=== PATIENT | male | born 1955 | race Caucasian/White ===

== ENCOUNTER 2018-11-07 08:43 | Outpatient (REF) | payer MEDICARE, BC, SELFPAY ==
[2018-11-07 12:31] LABS: Anion Gap 8.7 mmol/L (3-11); BUN 17 mg/dL (7-18); CO2 28.3 mmol/L (21.0-32.0); CREATININE 1.13 mg/dL (0.70-1.30); Calcium 9.2 mg/dL (8.5-10.1); Chloride 103 mmol/L (98-107); Cholesterol 225 mg/dL (50-200); Glucose 101 mg/dL (70-100); HDL Cholesterol 76 mg/dL (40-60); LDL CHOLESTEROL 134 mg/dL (<100); Potassium 4.6 mmol/L (3.5-5.1); Sodium 140 mmol/L (136-145); Triglyceride 78 mg/dL (30-150)
== END 2018-11-07 09:03 ==
LOC: NCHCN 08:43
PROVIDERS: PCP Family Medicine; Visit Provider Family Medicine
DX: Z00.00 Encounter for general adult medical examination without abnormal findings (principal); Z13.228 Encounter for screening for other metabolic disorders; Z13.220 Encounter for screening for lipoid disorders
CPT/HCPCS: 80048; 80061; 83721

== ENCOUNTER 2018-11-19 18:53 | Outpatient (REF) | payer MEDICARE, BC, SELFPAY ==
[2018-11-19 20:00] LABS: TSH (W/Ref FT4) 3.99 uIU/mL (0.358-3.74)
[2018-11-19 20:18] LABS: FREE T4 0.88 ng/dL (0.76-1.46)
[2018-11-21 09:40] LABS: PSA, Screening 1.3 ng/ml (0-4.5)
== END 2018-11-19 19:13 ==
LOC: NCHCN 18:53
PROVIDERS: PCP Family Medicine; Visit Provider Family Medicine
DX: R63.5 Abnormal weight gain (principal); G58.9 Mononeuropathy, unspecified; Z12.5 Encounter for screening for malignant neoplasm of prostate; Z00.00 Encounter for general adult medical examination without abnormal findings
CPT/HCPCS: 84153; 84439; 84443

== ENCOUNTER → 2019-01-05 10:34 | Outpatient (BNVA) | payer MEDICARE, BC, SELFPAY | PROVIDERS: PCP Family Medicine; Referring Provider Family Medicine; Visit Provider Physical Therapy Assistant | DX: Z12.11 Encounter for screening for malignant neoplasm of colon (principal); Z86.010 Personal history of colon polyps ==

== ENCOUNTER 2019-01-30 08:09 | Day surgery (SDC) | payer MEDICARE, BC, SELFPAY ==
[2019-01-30 08:25] VITALS: BP 137/87; PULSE 55; RESP 16; TEMP 36.2; O2SAT 99
[2019-01-30] MEDS: Lactated Ringers 1,000 ML 80 ML IV (08:35)
--- NOTE | 2019-01-30 09:36 | W.PM.DSUDISC ---
Discharge Plan Disposition Patient Disposition: HOME Condition: Good Discharge Details Attending Provider: Morenita So Primary Care Provider: Zeke Cuba Home Meds and New Rx's Prescriptions: Continued simvastatin 40 mg tablet 40 mg PO QHS RF: 0 loratadine [Allergy Relief (loratadine)] 10 mg tablet 10 mg PO DAILY RF: 0 (DME) arm brace [KAMINI Elbow Brace] 1 EACH misc 1 ea Miscellaneous HS Qty: 1 RF: 0 (DME) arm brace [Wrist Support Large-XLarge] 1 EACH misc 1 ea Miscellaneous HS Qty: 1 RF: 0 Discontinued polyethylene glycol 3350 17 gram/dose powder 238 g PO ONCE Qty: 238 RF: 0 bisacodyl [Dulcolax (bisacodyl)] 5 mg tablet,delayed release (DR/EC) 5 mg PO ONCE Qty: 4 RF: 0 Discharge Instructions Additional Instructions: Your colonoscopy was normal. Plan for routine screening in one year. If you develop new symptoms such as rectal bleeding or change in bowel habits, you can consider a colonoscopy prior to 10 years. Activity:: Activity as Tolerated Diet:: As Tolerated Discharge Orders Discharge Orders: Discharge Order (Routine); Ordered 01/30/19 Ordered By: Morenita So DS: Diagnosis Discharge Diagnosis (1) Normal colonoscopy: Start date: 01/30/19 Start time: 09:37 Status: Acute
[2019-01-30 10:00] VITALS: BP 125/77; PULSE 57; RESP 16; TEMP 36.1; O2SAT 98
--- NOTE | 2019-01-30 11:17 | COLE_ITS ---
DATE OF PROCEDURE: January 30, 2019 PREOPERATIVE DIAGNOSIS: Screening. POSTOPERATIVE DIAGNOSIS: Normal colon. PROCEDURE: Colonoscopy. SURGEON: Morenita So M.D. ANESTHESIA: General. INDICATIONS: This is a 63-year-old man whose last colonoscopy was in 2004. He is asymptomatic. He reports no family history of colon cancer. He does have a remote history of having colon polyps maite kathy. PROCEDURE: He was placed in the left Fischer' position. Propofol was titrated to sedation. Digital re ctal examination revealed no abnormalities. The scope was advanced to the cecum without difficulty. The ileocecal valve and appendiceal orifice were clearly identified. His prep was excellent. The s cope was slowly withdrawn with no abnormalities seen within the ascending, transverse, descending, si gmoid colon or rectum, including on retroflex view. He tolerated the procedure well and was stable t o recovery. He will need a follow-up screening again in ten years or sooner if symptoms indicate. cc: Zeke Cuba M.D.
== END 2019-01-30 10:30 | disposition home or self-care (01) ==
PROVIDERS: PCP Family Medicine; Visit Provider Surgery
PROC: 0DJD8ZZ Inspection of Lower Intestinal Tract, Via Natural or Artificial Opening Endoscopic (ICD-10-PCS; CPT 45378; principal; 2019-01-30 09:30)
DX: Z12.11 Encounter for screening for malignant neoplasm of colon (principal); Z86.010 Personal history of colon polyps
CPT/HCPCS: G0105

== ENCOUNTER 2019-10-05 18:47 | Outpatient (REF) | payer MEDICARE, BC, SELFPAY ==
[2019-10-05 19:21] LABS: TSH (W/Ref FT4) 2.65 uIU/mL (0.36-3.74)
[2019-10-05 19:50] LABS: ESR 14 mm/hr (1-20)
== END 2019-10-05 19:07 ==
LOC: NCHCN 18:47
PROVIDERS: PCP Family Medicine; Visit Provider Family Medicine
DX: R51 Headache (principal); R94.6 Abnormal results of thyroid function studies
CPT/HCPCS: 85652; 84443

== ENCOUNTER 2020-02-16 11:34 | Outpatient (CLI) | payer MEDICARE, BC, SELFPAY ==
--- NOTE | 2020-02-16 10:12 | DI.RAD_ITS ---
EXAM: XR SHOULDER LT COMPLETE 2+V CLINICAL HISTORY: left shoulder pain. TECHNIQUE: 2D digital imaging was performed. COMPARISON: No exams were available for comparison FINDINGS: BONES: No acute fracture is present. No bony destructive lesion is seen. JOINTS: No dislocation present. There is mild spurring of the AC joint and tip of the acromion. SOFT TISSUE: Normal. IMPRESSION: Mild degenerative changes. DATA REPOSITORY: RADIATION DOSE DELIVERED:
== END 2020-02-16 11:54 ==
PROVIDERS: PCP Family Medicine; Referring Provider Physical Therapist; Visit Provider Orthopaedic Surgery
DX: M25.512 Pain in left shoulder (principal); M75.82 Other shoulder lesions, left shoulder; M19.012 Primary osteoarthritis, left shoulder; W10.9XXA Fall (on) (from) unspecified stairs and steps, initial encounter
CPT/HCPCS: 99203; 99214; 73030

== ENCOUNTER 2020-02-29 01:51 | Outpatient (CLI) | payer MEDICARE, BC, SELFPAY ==
--- NOTE | 2020-02-29 06:34 | DI.MRI_ITS ---
EXAM: MR UPPER JOINT LT WO CLINICAL HISTORY: shoulder PAIN, R/O RTC TEAR,TENDINITIS LT ROTATOR CUFF,M75.82. TECHNIQUE: Multiplanar multisequence MRI was performed. COMPARISON: CR XR SHOULDER LT COMPLETE 2+V from 02/16/2020 FINDINGS: BONES: There is no fracture or contusion pattern. JOINTS: Mild degenerative signal changes are seen at the acromioclavicular joint. The glenohumeral j oint is normal. TENDONS: Supraspinatus: Thickening and increased signal is seen in the supraspinatus tendon consistent with de generation and/or partial tear. Infraspinatus: Unremarkable. Subscapularis: Mild thickening and increased signal seen in the subscapularis tendon consistent with degeneration. [place]: Unremarkable. Biceps and [place]: There is thickening and increased signal seen in the biceps tendon consistent with degeneration and/or partial tear. MUSCLES: Unremarkable. GLENOID LABRUM: The superior labrum shows increased signal at the biceps tendon attachment. There is a 1.3 x 1.0 cm cyst associated with the posterior inferior labrum. There appears to be a tear in th e posterior inferior labrum. SOFT TISSUES: Unremarkable. LIGAMENTS: Unremarkable. OTHER: Subacromial and subdeltoid bursae are unremarkable. IMPRESSION: 1. 1.3 x 1.0 cm cyst adjacent to the posterior inferior labrum suggesting a paralabral cyst. Linear hyperintense signal seen in the posterior inferior labrum suggesting a tear. 2. Thickening and increased signal seen in the biceps and supraspinatus tendons consistent with degen eration and/or partial tears. 3. Degeneration in the subscapularis tendon. 4. Degenerative changes at the acromioclavicular joint. DATA REPOSITORY:
== END 2020-02-29 02:11 ==
PROVIDERS: PCP Family Medicine; Visit Provider Orthopaedic Surgery
DX: S43.492A Other sprain of left shoulder joint, initial encounter (principal); M19.012 Primary osteoarthritis, left shoulder; M85.612 Other cyst of bone, left shoulder; M25.812 Other specified joint disorders, left shoulder
CPT/HCPCS: 73221

== ENCOUNTER → 2020-03-08 11:31 | Outpatient (BNVA) | payer MEDICARE, BC, SELFPAY | PROVIDERS: PCP Family Medicine; Referring Provider Family Medicine; Visit Provider Orthopaedic Surgery | DX: M19.012 Primary osteoarthritis, left shoulder (principal) | CPT/HCPCS: 99213 ==

== ENCOUNTER 2020-04-22 03:45 | Outpatient (CLI) | payer MEDICARE, BC, SELFPAY ==
[2020-04-23 20:39] LABS: COVID-19 RT-PCR Result NEGATIVE (Negative)
== END 2020-04-22 04:05 ==
PROVIDERS: PCP Family Medicine; Visit Provider Orthopaedic Surgery
DX: Z11.59 Encounter for screening for other viral diseases (principal); Z01.818 Encounter for other preprocedural examination
CPT/HCPCS: U0003

== ENCOUNTER 2020-04-25 06:19 | Day surgery (SDC) | payer MEDICARE, BC, SELFPAY ==
[2020-04-25] VITALS (7 sets, daily range): BP systolic 76–136; BP diastolic 42–79; PULSE 46–54; RESP 13–17; TEMP 36.2–36.6; O2SAT 96–100
[2020-04-25] MEDS: Lactated Ringers 1,000 ML 80 ML IV ×2 (07:18→08:37)
[2020-04-25] MEDS: ceFAZolin 2 GM/50 ML BAG IVPB (07:34)
--- NOTE | 2020-04-25 08:20 | PDOC.DSDIS_ITS ---
Discharge Plan Disposition Patient Disposition: HOME Condition: Good Discharge Details Reason For Visit: eXCISION L DISTAL CLAVICLE Attending Provider: Chris Martinez Primary Care Provider: Zeke Cuba Home Meds and New Rx's Prescriptions: New hydrocodone-acetaminophen 5-325 mg tablet 1 tab PO Q6H PRN (Reason: pain) Qty: 7 RF: 0 ibuprofen 800 mg tablet 800 mg PO TID Qty: 21 RF: 0 Continued loratadine [Allergy Relief (loratadine)] 10 mg tablet 10 mg PO DAILY RF: 0 (DME) KAMINI Elbow Brace 1 EACH misc 1 ea Miscellaneous HS Qty: 1 RF: 0 (DME) Wrist Support Large-XLarge 1 EACH misc 1 ea Miscellaneous HS Qty: 1 RF: 0 rosuvastatin 10 mg Tablet 10 mg PO DAILY RF: 0 Discharge Instructions Additional Instructions: Sling for comfort. Wean yourself out of sling gradually, as your pain decreases. Use L arm as much as your discomfort allows. After 48 hours, may shower and get dressing wet. Apply cryocuff to L shoulder continuously overnite. Tomorrow, start to use 4 times/day for 1 hour each time. Outpatient physical therapy beginning on Sat or . Follow up with in 2 weeks. Take ibuprofen as prescribed, 3 times/day. Take hydrocodone for breakthru pain, if needed. 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
--- NOTE | 2020-04-25 15:56 | ROE_ITS ---
Date of service: 04/25/20 Time of Service: 08:00 Operative Note Operative Note DATE OF PROCEDURE: 04/25/20 PRE-OP DIAGNOSIS: DJD AC joint left POST-OP DIAGNOSIS: same PROCEDURE: Excision distal clavicle left SURGEON: Chris Martinez PROCESS SAFETY ENGINEERING TECHNOLOGIST: Corin Sandy ANESTHESIA: GETA PATHOLOGY: none sent COMPLICATIONS: None Patient was transported to: PACU Patient's condition: stable Indications: This is a 65-year-old white male who injured left shoulder falling down some stairs in June 2019. He has had left shoulder pain ever since then. He has not responded to conservative treatment. X-rays and MRI scan revealed the pathology was limited to the AC joint. Excision distal clavicle was recommended to alleviate his pain on a permanent basis. Risk and complications were explained to patient detail preop Procedure Description: Patient was taken to the operating room on 04/25/2020 he is placed supine on the operative table and general anesthetic was administered. He was then placed in the brice chair position in the superior aspect of the left shoulder including the AC joint were prepped and blocked draped in usual sterile fashion. Partially 3 inch longitudinal incision was made centered over the AC joint. The incision was carried down to the AC joint capsule subcutaneous veins were cauterized. Vertical incision was made the AC joint capsule and the distal clavicle was subparagraph exposed. The distal centimeter of the clavicle was resected using the oscillating saw. The resected end of clavicle was packed with bone wax alignment postop bleeding. Wound was irrigated with saline solution the wound margins were infiltrated with 0.5% Marcaine with epinephrine solution. Infiltration was then carried down to the AC joint capsule and periosteum over the distal clavicle. The periosteum over the distal clavicle and the AC joint capsule were then approximated with interrupted [id number] sutures of #1 Vicryl suture tear. Subcu was approximated few interrupted 2-0 Vicryl's. The skin is approximated with a running subcuticular closure of 4-0 Monocryl supplemented by Steri-Strip. Wounds dressed with Xeroform gauze followed by a Mepilex dressing. Patient taught procedure well his anesthesia was reversed all complications. Sling was applied to the left side he was discharged to recovery room in good condition. Patient was later discharged home from day surgery unit when fully recovered from his general anesthesia. He was given instructions to wean himself out of the sling as soon as discomfort allows. He is apply a Cryo/Cuff to his left shoulder continuously overnight tonight. Tomorrow he will apply the Cryo/Cuff 4 times a day for an hour each time. He may shower and get his legs dressing wet after 48 hours. He is instructed the to let the Mepilex dressing fall off by itself or we will take it off when he comes back for follow-up. He will begin outpatient physical therapy for range of motion of the left shoulder on Saturday or . Follow-up with Dr. Martinez in 2 weeks. He is given prescription of ibuprofen 800 mg p.o. 3 times daily for 10 days for mild pain and swelling. He is given prescription of hydrocodone with APAP 5/325, 1 p.o. every 6 hours if needed for breakthrough pain. He may use his left arm as much as discomfort allows.
== END 2020-04-25 10:20 | disposition home or self-care (01) ==
PROVIDERS: PCP Family Medicine; Visit Provider Orthopaedic Surgery
PROC: (CPT 23120; principal; 2020-04-25 07:30)
DX: M19.012 Primary osteoarthritis, left shoulder (principal)
CPT/HCPCS: 23120; J0690; J1100; J1885; J2405; J2704; L3650

== ENCOUNTER → 2020-05-10 08:57 | Outpatient (BNVA) | payer MEDICARE, BC, SELFPAY | PROVIDERS: PCP Family Medicine; Referring Provider Family Medicine; Visit Provider Orthopaedic Surgery | DX: Z47.89 Encounter for other orthopedic aftercare (principal); M19.012 Primary osteoarthritis, left shoulder ==

== ENCOUNTER → 2020-06-07 10:09 | Outpatient (BNVA) | payer MEDICARE, BC, SELFPAY | PROVIDERS: PCP Family Medicine; Referring Provider Family Medicine; Visit Provider Orthopaedic Surgery | DX: Z47.89 Encounter for other orthopedic aftercare (principal); M19.012 Primary osteoarthritis, left shoulder ==

== ENCOUNTER 2021-01-30 18:52 | Outpatient (REF) | payer MEDICARE, SELFPAY ==
[2021-01-30 19:55] LABS: Calculated LDL 96 mg/dL (<100); Cholesterol 188 mg/dL (<200); HDL Cholesterol 81 mg/dL (40-60); Triglyceride 55 mg/dL (<150)
== END 2021-01-30 18:53 | disposition home or self-care (01) ==
LOC: LBN 18:52
PROVIDERS: PCP Family Medicine; Visit Provider Family Medicine
DX: E78.5 Hyperlipidemia, unspecified (principal)
CPT/HCPCS: 80061

== ENCOUNTER 2022-11-22 17:53 | Outpatient (REF) | payer MEDICARE, BC, SELFPAY ==
[2022-11-22 21:20] LABS: Vitamin B12 307 pg/mL (193-986)
[2022-11-22 22:22] LABS: PSA, Screening 1.4 ng/mL (<=4.5)
== END 2022-11-22 17:54 | disposition home or self-care (01) ==
LOC: NCHCN 17:53
PROVIDERS: PCP Family Medicine; Visit Provider Family Medicine
DX: G58.8 Other specified mononeuropathies (principal); Z12.5 Encounter for screening for malignant neoplasm of prostate
CPT/HCPCS: 84153; 82607

== ENCOUNTER 2023-11-28 14:25 | Outpatient (REF) | payer MEDICARE, BC, SELFPAY ==
[2023-11-28 15:36] LABS: Calculated LDL 87 mg/dL (<100); Cholesterol 173 mg/dL (<200); HDL Cholesterol 74 mg/dL (40-60); Triglyceride 61 mg/dL (<150)
== END 2023-11-28 14:26 | disposition home or self-care (01) ==
LOC: NCHCN 14:25
PROVIDERS: PCP Family Medicine; Visit Provider Student in an Organized Health Care Education/Training Program
DX: E78.5 Hyperlipidemia, unspecified (principal)
CPT/HCPCS: 80061

== ENCOUNTER 2024-01-14 12:25 | Emergency (ER) | payer MEDICARE, BC, SELFPAY ==
--- NOTE | 2024-01-14 12:15 | RT.EKG_ITS ---
APPROVED REPORT Exam: Resting ECG Reason for Exam: Syncope Patient Location: E HR:56 bpm ECG Measurements Heart Rate 56 AXIS MT 270 P 34 QRSd 152 QRS -71 QT 415 T 0 QTc 401 Conclusion Sinus bradycardia 56 first degree block (270) RBBB no stemi
[2024-01-14 12:23] VITALS: BP 145/91; PULSE 58; RESP 16; TEMP 35.9
[2024-01-14 12:48] LABS: Abs Immature Grans 0.01 10^3/uL (0.0-0.06); Absolute Basophil Count 0.04 10^3/uL (0.0-0.2); Absolute Eosinophil Count 0.17 10^3/uL (0.0-0.7); Absolute Monocyte Count 0.63 10^3/uL (0.1-0.8); Absolute Neutrophil Count 2.95 10^3/uL (1.2-6.7); Basophils % 0.6 %; Eosinophils % 2.5 %; HCT 50.2 % (40.0-50.0); HGB 16.2 g/dL (13.5-17.5); Immature Grans % 0.1 %; Lymphocytes % 44.9 %; MCH 30.4 pg (27.0-33.0); MCHC 32.3 % (32.0-36.0); MCV 94 fL (80-95); MPV 10.2 fL (8.0-11.0); Monocytes % 9.1 %; Neutrophils % 42.8 %; Platelet Count 254 10^3/uL (130-400); RBC 5.33 10^6/uL (4.36-5.78); RDW 12.6 % (11.8-14.1); RDW-SD 43.6 fL
[2024-01-14 13:08] LABS: ALT 27 U/L (16-63); AST 29 U/L (15-37); Albumin 4.1 g/dL (3.4-5.0); Alkaline Phosphatase 119 U/L (46-116); BUN 22 mg/dL (7-18); Bilirubin, Total 0.88 mg/dL (0.2-1.0); CREATININE 1.3 mg/dL (0.70-1.30); Calcium 9.7 mg/dL (8.5-10.1); Chloride 104 mmol/L (98-107); Glucose 141 mg/dL (74-106); Magnesium 1.9 mg/dL (1.8-2.4); Potassium 4.8 mmol/L (3.5-5.1); Sodium 139 mmol/L (136-145); Total Protein 8.1 g/dL (6.4-8.2); Troponin I < 50 ng/L (< or =60)
--- NOTE | 2024-01-14 14:27 | ED.GENADUL_ITS ---
Discharge Plan Disposition Patient Disposition: Home Condition: Stable Discharge Details Clinical Impression: Vasovagal episode Primary Care Provider: Hero Gill ED Provider: Daniel Aviles Home Meds and New Rx's Prescriptions: No Action loratadine [Allergy Relief (loratadine)] 10 mg tablet 10 mg PO DAILY rosuvastatin 10 mg Tablet 10 mg PO DAILY hydrocodone-acetaminophen 5-325 mg tablet 1 tab PO Q6H PRN (Reason: pain) Qty: 7 0RF ibuprofen 800 mg tablet 800 mg PO TID Qty: 21 0RF Discharge Instructions Instructions: Near Fainting Additional Instructions: please return to ED if symptoms recur or you develop any chest pain follow up with your PCP for outpatient stress test HPI General Date/Time Provider Initiated Documentation: 01/14/24 12:32 . Limitations to Documentation: no limitations . Information obtained by: patient and EMS . HPI Narrative: 68-year-old gentleman with out significant past medical history presents for evaluation of acute onset dizziness, feeling hot, nauseous, no vomiting. Patient was doing physical therapy for his shoulder. He denies any chest pain or shortness of breath with this acute onset of symptoms. EMS reports that his blood sugar was normal. They noted that he appeared cold and clammy. And route, the patient reports resolution of his symptoms and states that he feels completely fine now. He states that this is never happened to him before he states that he has been doing physical therapy for his shoulder, and that he has never had issues with it before. He says he is ready to get home and cut the grass. Related Data Home Medications Medication Instructions Recorded Confirmed loratadine 10 mg tablet (Allergy 10 mg PO DAILY 12/29/18 02/19/23 Relief (loratadine)) rosuvastatin 10 mg tablet 10 mg PO DAILY 04/22/20 02/19/23 hydrocodone 5 mg-acetaminophen 325 1 tab PO Q6H PRN pain #7 tabs 04/25/20 02/19/23 mg tablet ibuprofen 800 mg tablet 800 mg PO TID #21 tabs 04/25/20 02/19/23 Previous Rx's Medication Instructions Recorded hydrocodone 5 mg-acetaminophen 325 1 tab PO Q6H PRN pain #7 tabs 04/25/20 mg tablet ibuprofen 800 mg tablet 800 mg PO TID #21 tabs 04/25/20 Allergies Allergy/AdvReac Type Severity Reaction Status Date / Time cephalexin monohydrate Allergy Intermediate Hives Verified 02/19/23 08:02 [From Keflex] General Stated Complaint: Dizzy/Sync KODY: 3 Exam Narrative Exam Narrative: Review of Systems: All systems reviewed & are unremarkable except as noted in HPI and below Well-developed, no acute distress NCAT PERRL, normal conjunctiva Bradycardia without murmur Unlabored respiratory effort,, clear bilaterally Nondistended abdomen, nontender Extremities w/o deformity, no cyanosis, no edema No rashes or lesions. no focal neurologic deficits Appropriate mood and affect Course Vital Signs Vital signs: Vital Signs Temperature 35.9 C L 01/14/24 12:23 Pulse 58 L 01/14/24 12:23 Respiratory Rate 16 01/14/24 12:23 Blood Pressure 145/91 H 01/14/24 12:23 Temperature 35.9 C L 01/14/24 12:23 Pulse 58 L 01/14/24 12:23 Respiratory Rate 16 01/14/24 12:23 Respiratory Effort Normal, Non-Labored 01/14/24 12:58 Respiratory Depth Normal 01/14/24 12:58 Respiratory Pattern Normal 01/14/24 12:58 Blood Pressure 145/91 H 01/14/24 12:23 Pain Level 0 01/14/24 12:23 Lab/Test Results Lab/Test Results: Laboratory Tests Range/Units 01/14/24 12:35 WBC (4.4-10.8) 10^3/uL 6.90 RBC (4.36-5.78) 10^6/uL 5.33 Hgb (13.5-17.5) g/dL 16.2 Hct (40.0-50.0) % 50.2 H MCV (80-95) fL 94 MCH (27.0-33.0) pg 30.4 MCHC (32.0-36.0) % 32.3 RDW (11.8-14.1) % 12.6 Plt Count (130-400) 10^3/uL 254 MPV (8.0-11.0) fL 10.2 Immature Gran % % 0.1 Neutrophils % % 42.8 Lymphocytes % % 44.9 Monocytes % % 9.1 Eosinophils % % 2.5 Basophils % % 0.6 Nucleated RBC % (0.0-0.3) % 0.0 Absolute Neutrophils (1.2-6.7) 10^3/uL 2.95 Absolute Lymphocytes (1.2-3.4) 10^3/uL 3.10 Absolute Monocytes (0.1-0.8) 10^3/uL 0.63 Absolute Eosinophils (0.0-0.7) 10^3/uL 0.17 Absolute Basophils (0.0-0.2) 10^3/uL 0.04 Sodium (136-145) mmol/L 139 Potassium (3.5-5.1) mmol/L 4.8 Chloride (98-107) mmol/L 104 Carbon Dioxide (21.0-32.0) mmol/L 24.0 Anion Gap (3-11) mmol/L 11.0 BUN (7-18) mg/dL 22 H Creatinine (0.70-1.30) mg/dL 1.3 Est GFR (CKD-EPI 2020) (mL/min/1.73m2) 59.10 Glucose (74-106) mg/dL 141 H Calcium (8.5-10.1) mg/dL 9.7 Magnesium (1.8-2.4) mg/dL 1.9 Total Bilirubin (0.2-1.0) mg/dL 0.88 AST (15-37) U/L 29 ALT (16-63) U/L 27 Alkaline Phosphatase (46-116) U/L 119 H Troponin I (< or =60) ng/L < 50 Total Protein (6.4-8.2) g/dL 8.1 Albumin (3.4-5.0) g/dL 4.1 Medical Decision Making Urgent evaluation of presyncopal symptoms. Patient did not pass out or lose consciousness. Symptoms did occur in the setting of exertion. He denies any chest pain. Symptoms seemed brief and resolved on tenuously. On initial evaluation, the patient reports no symptoms. His EKG does not demonstrate acute ischemic changes, it does demonstrate bradycardia and there is no prior for comparison. He does not have beta-blockers on his medication list that may precipitate the bradycardia. He has minimal risk factors for ACS plan for labs including serial troponins as well as cardiac monitoring. 1400 Labs reviewed. No leukocytosis, and no anemia. Normal platelet count. Electrolytes without derangement. Renal function is within normal limits. His initial troponin is negative. On reassessment, he continues to feel well and have no symptoms. Will trend trop and if negative plan for DC home. 1645 Serial troponin is negative. Patient discharged in good condition condition. Recommend close follow-up with PCP and outpatient stress test. Return precautions advised. Medical Records Medical records reviewed: Yes I reviewed the patient's medical records. Lab Data Lab results reviewed: Yes I reviewed the patient's lab results. Quality:SDOH Health Related Social Needs: No Data to Display PFSH All Active Problems (Updated 01/14/24 @ 16:24 by Daniel Aviles MD) Vasovagal episode (Acute) Asymmetrical sensorineural hearing loss (Acute) Arthritis of left acromioclavicular joint (Chronic) S/P clavicle excision: 04/25/2020 Tendonitis of left rotator cuff (Acute ~06/2019) Normal colonoscopy (Acute) Medical History Actinic keratoses Colon polyps Compression neuropathy Left anterior fascicular block Right bundle branch block Weight gain Hyperlipidemia Impaired fasting glucose Surgical History History of carpal tunnel release LEFT History of colonoscopy Social History Smoking/Tobacco Use Status: Never Smoking risk assessment performed?: Yes Alcohol Intake: current Alcohol Intake frequency: holidays/special occasions only Drug use: Never Substance use type: does not use Housing: house Do you feel safe at home: Yes Additional Social history: unable to ask, doing pre op
[2024-01-14 16:21] LABS: Troponin I < 50 ng/L (< or =60)
== END 2024-01-14 16:41 | disposition home or self-care (01) ==
PROVIDERS: Emergency Provider Emergency Medicine; PCP Student in an Organized Health Care Education/Training Program
DX: R55 Syncope and collapse (principal); R11.0 Nausea; R00.1 Bradycardia, unspecified; E78.5 Hyperlipidemia, unspecified; Z79.899 Other long term (current) drug therapy
CPT/HCPCS: 36415; 80053; 82962; 93005; 99284; 83735; 84484; 85025; 93010

== ENCOUNTER → 2024-10-26 13:34 | Outpatient (BNVA) | payer MEDICARE, BC, SELFPAY | PROVIDERS: PCP Student in an Organized Health Care Education/Training Program; Referring Provider Student in an Organized Health Care Education/Training Program; Visit Provider Podiatrist | DX: B07.0 Plantar wart (principal); L60.3 Nail dystrophy; B35.1 Tinea unguium; L84 Corns and callosities; L60.8 Other nail disorders; L60.2 Onychogryphosis | CPT/HCPCS: 17110; 99214 ==

== ENCOUNTER → 2024-12-07 14:31 | Outpatient (BNVA) | payer MEDICARE, BC, SELFPAY | PROVIDERS: PCP Student in an Organized Health Care Education/Training Program; Referring Provider Student in an Organized Health Care Education/Training Program; Visit Provider Podiatrist | DX: B07.0 Plantar wart (principal); L60.3 Nail dystrophy; B35.1 Tinea unguium | CPT/HCPCS: 17110 ==

== ENCOUNTER 2024-12-16 09:09 | Outpatient (REF) | payer MEDICARE, BC, SELFPAY ==
[2024-12-16 20:03] LABS: ALT 25 U/L (16-63); AST 37 U/L (15-37); Albumin 4.1 g/dL (3.4-5.0); Alkaline Phosphatase 112 U/L (46-116); Anion Gap 10.1 mmol/L (3-11); BUN 21 mg/dL (7-18); Bilirubin, Total 1.2 mg/dL (0.2-1.0); CO2 25.9 mmol/L (21.0-32.0); CREATININE 1.2 mg/dL (0.70-1.30); Calcium 9.1 mg/dL (8.5-10.1); Calculated LDL 77 mg/dL (<100); Chloride 102 mmol/L (98-107); Cholesterol 162 mg/dL (<200); Estimated GFR 64.65 (mL/min/1.73m2); Glucose 102 mg/dL (74-106); HDL Cholesterol 75 mg/dL (>or=40); Potassium 4.1 mmol/L (3.5-5.1); Sodium 138 mmol/L (136-145); Total Protein 7.3 g/dL (6.4-8.2); Triglyceride 51 mg/dL (<150)
== END 2024-12-16 09:10 | disposition home or self-care (01) ==
LOC: NCHCN 09:09
PROVIDERS: PCP Student in an Organized Health Care Education/Training Program; Visit Provider Family Medicine
DX: E78.5 Hyperlipidemia, unspecified (principal)
CPT/HCPCS: 80053; 80061

== ENCOUNTER → 2025-02-23 14:44 | Outpatient (BNVA) | payer MEDICARE, BC, SELFPAY | PROVIDERS: PCP Student in an Organized Health Care Education/Training Program; Referring Provider Student in an Organized Health Care Education/Training Program; Visit Provider Podiatrist | DX: B35.1 Tinea unguium (principal); L60.3 Nail dystrophy; B07.0 Plantar wart; B35.3 Tinea pedis | CPT/HCPCS: 17110 ==

== ENCOUNTER → 2025-03-25 10:41 | Outpatient (BNVA) | payer MEDICARE, BC, SELFPAY | PROVIDERS: PCP Student in an Organized Health Care Education/Training Program; Referring Provider Student in an Organized Health Care Education/Training Program; Visit Provider Psychiatry & Neurology Neurology | DX: G56.02 Carpal tunnel syndrome, left upper limb (principal) | CPT/HCPCS: 95909 ==